=== PATIENT | male | born 1965 | race Caucasian/White ===

== ENCOUNTER 2018-12-22 18:14 | Emergency (ER) | payer OTHER ==
[2018-12-22 19:33] LABS: ADD MAN DIFF? NO
[2018-12-22] MEDS: LIDOCAINE/MYLANTA 40 ML BTL PO (19:35)
[2018-12-22] MEDS: ONDANSETRON 4 MG INJ IV (19:36)
[2018-12-22] MEDS: FAMOTIDINE 20 MG INJ IV (19:36)
[2018-12-22 19:43] LABS: ADD UMIC NO; UR ASCORBIC ACID NEGATIVE (NEGATIVE); UR BILIRUBIN (Dip) NEGATIVE (NEGATIVE); UR BLOOD (Dip) NEGATIVE (NEGATIVE); UR CLARITY CLEAR (CLEAR); UR COLOR YELLOW (YELLOW); UR GLUCOSE (Dip) NEGATIVE (NEGATIVE); UR KETONES (Dip) NEGATIVE (NEGATIVE); UR LEUKOCYTE ESTERASE (Dip) NEGATIVE Leu/ul (NEGATIVE); UR NITRITE (Dip) NEGATIVE (NEGATIVE); UR SPECIFIC GRAVITY (Dip) 1.027 (1.003-1.030); UR TOTAL PROTEIN (Dip) NEGATIVE (NEGATIVE); UR UROBILINOGEN (Dip) NEGATIVE (NEGATIVE)
[2018-12-22 19:52] LABS: WHITE BLOOD COUNT 12.9 10^3/ul (4.8-10.8)
[2018-12-22 19:52] LABS: BASOPHIL # 0.1 10^3/ul (0.0-0.1); BASOPHILS % 0.5 % (0.0-2.0); EOSINOPHILS # 0.2 10^3/ul (0.0-0.5); EOSINOPHILS % 1.2 % (0.0-7.0); HEMATOCRIT 46.9 % (42.0-52.0); HEMOGLOBIN 15.3 g/dl (14.0-18.0); LYMPHOCYTES # 2.3 10^3/ul (0.8-2.9); LYMPHOCYTES % 18.1 % (15.0-51.0); MEAN CORPUSCULAR HEMOGLOBIN 30.1 pg (29.0-33.0); MEAN CORPUSCULAR HGB CONC 32.6 g/dl (32.0-37.0); MEAN CORPUSCULAR VOLUME 92.3 fl (82.0-101.0); MEAN PLATELET VOLUME 10.3 fl (7.4-10.4); MONOCYTE # 0.8 10^3/ul (0.3-0.9); MONOCYTES % 5.9 % (0.0-11.0); NEUTROPHIL # 9.5 10^3/ul (1.6-7.5); NEUTROPHILS % 73.9 % (39.0-77.0); PLATELET COUNT 248 10^3/UL (140-415); RED BLOOD COUNT 5.08 10^6/ul (4.70-6.10)
[2018-12-22 19:53] LABS: ALANINE AMINOTRANSFERASE 32 IU/L (13-69); ALBUMIN 4.8 g/dl (3.3-4.9); ALBUMIN/GLOBULIN RATIO 1.23; ALKALINE PHOSPHATASE 93 IU/L (42-121); ANION GAP 9 (5-13); ASPARTATE AMINO TRANSFERASE 28 IU/L (15-46); BILIRUBIN,INDIRECT 0.2 mg/dl (0-1.1); BILIRUBIN,TOTAL 0.2 mg/dl (0.2-1.3); BLOOD UREA NITROGEN 19 mg/dl (7-20); CARBON DIOXIDE 29 mmol/L (21-31); CHLORIDE 102 mmol/L (97-110); CREATININE 1.21 mg/dl (0.61-1.24); Estimated GFR > 60 mL/min (>60); GLUCOSE 120 mg/dl (70-220); LIPASE 83 U/L (23-300); POTASSIUM 3.6 mmol/L (3.5-5.1); SODIUM 140 mmol/L (135-144); TOTAL PROTEIN 8.7 g/dl (6.1-8.1)
[2018-12-22 20:03] LABS: TROPONIN-I < 0.012 ng/ml (0.000-0.120)
[2018-12-22] MEDS: HYDROmorphONE 0.5 MG/0.5 ML SYG IV (20:58)
[2018-12-22] MEDS: SOD CHLORIDE 0.9% 1,000 ML IV (21:55)
[2018-12-22] MEDS: KETOROLAC 15 MG INJ IV (21:56)
[2018-12-22] MEDS: IODIXANOL LOCM 100 ML BTL (22:12)
[2018-12-22] MEDS: SOD CHLORIDE 0.9% 100 ML (22:12)
== END 2018-12-22 23:14 | disposition home or self-care (01) ==
LOC: E/R 18:14
DX: N20.0 Calculus of kidney (principal); K80.70 Calculus of gallbladder and bile duct without cholecystitis without obstruction
CPT/HCPCS: 36415; 71045; 74177; 76775; 80053; 81003; 83690; 84484; 85025; 93005; 96374; 96375; 99285-25